=== PATIENT | male | born 1990 | race Caucasian/White ===

== ENCOUNTER 2016-11-25 12:34 | Emergency (ER) | payer MEDICAID ==
[~2016-11-25] VITALS: Ht 177.8 cm; Wt 59.1 kg
[2016-11-25 12:40] VITALS: Ht 177.8 cm; Wt 59.1 kg
[2016-11-25] MEDS ORDERED: CYCL-319 PO (14:33)
[2016-11-25] MEDS ORDERED: NAPR-260 PO (14:33)
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
== END 2016-11-25 15:56 | disposition home or self-care (01) ==
LOC: FTE 12:34
DX: S39.92XA Unspecified injury of lower back, initial encounter (principal); V49.49XA Driver injured in collision with other motor vehicles in traffic accident, initial encounter
CPT/HCPCS: 99283